=== PATIENT | male | born 1945 | race Caucasian/White ===

== ENCOUNTER 2017-09-12 13:03 | Observation (INO) | payer MEDICARE ==
[~2017-09-12] VITALS: Ht 180.3 cm; Wt 100.0 kg
[2017-09-12] VITALS (7 sets, daily range): BP systolic 134–166; BP diastolic 70–90; PULSE 59–98; RESP 18; TEMP 97.8–98.5; O2SAT 93–98
[~2017-09-12 13:03] MED LIST: ASPI81TA82 PO; ATOR80TA41 PO; PRAS10 PO
[2017-09-12 14:00] LABS: AUTOMATED NEUTROPHIL # 3.2 TH/MM3 (1.8-7.7); BASOPHIL % 0.6 % (0.0-2.0); EOSINOPHIL # 0.1 TH/MM3 (0-0.4); EOSINOPHIL % 1.7 % (0.0-4.0); HEMATOCRIT 39.3 % (39.0-51.0); HEMOGLOBIN 13.6 GM/DL (13.0-17.0); LYMPH % 34.3 % (9.0-44.0); LYMPHOCYTE # 2.1 TH/MM3 (1.0-4.8); MEAN CELL VOLUME 83.8 FL (80.0-100.0); MEAN CORPUSCULAR HEMOGLOBIN 29.1 PG (27.0-34.0); MEAN CORPUSCULAR HGB CONC 34.7 % (32.0-36.0); MEAN PLATELET VOLUME 8.4 FL (7.0-11.0); MONO % 11.9 % (0.0-8.0); MONOCYTE # 0.7 TH/MM3 (0-0.9); NEUT % 51.5 % (16.0-70.0); PLATELET COUNT 212 TH/MM3 (150-450); RED BLOOD COUNT 4.69 MIL/MM3 (4.50-5.90); RED CELL DISTRIBUTION WIDTH 16.7 % (11.6-17.2); WHITE BLOOD COUNT 6.1 TH/MM3 (4.0-11.0)
[2017-09-12 14:11] LABS: PROTHROMBIN TIME - PATIENT 10.5 SEC (9.8-11.6)
[2017-09-12 14:16] LABS: BICARBONATE 25.7 MEQ/L (21.0-32.0); BLOOD UREA NITROGEN 17 MG/DL (7-18); CALCIUM 9.2 MG/DL (8.5-10.1); CHLORIDE 104 MEQ/L (98-107); CREATININE 1.09 MG/DL (0.60-1.30); GLOMERULAR FILTRATION RATE 67 ML/MIN (>89); GLUCOSE,RANDOM 200 MG/DL (74-106); SODIUM (NA) 138 MEQ/L (136-145)
--- NOTE | 2017-09-12 14:16 | RADRPT ---
EXAM DATE/TIME: 09/12/2017 13:38 [facility] COMPARISON: No previous studies available for comparison. INDICATIONS : Chest pain and short of breath. MEDICAL HISTORY : None. SURGICAL HISTORY : Carotid stent. ENCOUNTER: Initial ACUITY: 1 day PAIN SCORE: 3/10 LOCATION: Bilateral chest FINDINGS: PA and lateral views of the chest demonstrate the lungs to be symmetrically aerated without evidence of mass, infiltrate or effusion. The cardiomediastinal contours are unremarkable. Osseous structure s are intact. CONCLUSION: No acute disease. Jerman Jeff Jr., MD on September 12, 2017 at 14:14 Board Certified Radiologist. This report was verified electronically.
[2017-09-12 14:20] LABS: TROPONIN I LESS THAN 0.02 NG/ML (0.02-0.05)
--- NOTE | 2017-09-12 16:11 | PD ---
HPI Chief Complaint: Chest Pain Time Seen by Provider: 15:54 Travel History International Travel<30 days: No Contact w/Intl Traveler<30days: No Traveled to known affect area: No History of Present Illness HPI 71-year-old male with history of hypertension, coronary artery disease, hyperlipidemia, diabetes, presents for evaluation. He reports that this morning at 9 AM he was doing yard work when he felt diaphoresis, dyspnea, lightheadedness. Symptoms lasted for approximately 45 minutes and then resolved. He has been asymptomatic since then. He called the office of his access registrar Dr. Delarosa and they recommended that he come to the hospital for further evaluation. He reports that he had similar symptoms 1.5 weeks ago when he was walking for 1 mile. He reports that he had similar symptoms in 2014 when he required cardiac catheterization and stenting of the LAD. He denies any episodes of chest pain today. He denies any cough, congestion, abdominal pain, nausea or vomiting. He has no other complaints at this time. PFSH Past Medical History Hx Anticoagulant Therapy: Yes Asthma: No Autoimmune Disease: No Heart Rhythm Problems: No Cancer: Yes (Skin cancer 25 years ago ; cut-off and removed.) Cardiovascular Problems: Yes High Cholesterol: Yes Chemotherapy: No Chest Pain: No Congestive Heart Failure: No COPD: No Cerebrovascular Accident: Yes Diabetes: Yes Diminished Hearing: No GERD: No Hiatal Hernia: No Immune Disorder: No Kidney Stones: No Musculoskeletal: No Neurologic: Yes Psychiatric: No Reproductive: No Immunizations Current: Yes Radiation Therapy: No Renal Failure: No Sickle Cell Disease: No Sleep Apnea: No Thyroid Disease: No Ulcer: No Past Surgical History Coronary Stent: Yes (PLACED 07/2014) Social History Alcohol Use: Yes (3-4 SCOTCH DAILY; LAST DRINK 07/28/14) Tobacco Use: No (QUIT 1989) Substance Use: No Allergies-Medications (Allergen,Severity, Reaction): Coded Allergies: No Known Allergies (Unverified , 09/12/17) Reported Meds & Prescriptions Reported Meds & Active Scripts Active Reported Aspirin Low Dose (Aspirin) 81 Mg Chew 81 Mg CHEW DAILY Atorvastatin (Atorvastatin Calcium) 80 Mg Tab 80 Mg PO HS Glyburide 2.5 Mg Tab 2.5 Mg PO DAILY Take with meals at the same time each day Review of Systems Except as stated in HPI: all other systems reviewed are Neg Physical Exam Narrative GENERAL: Well-developed well-nourished male in no acute distress SKIN: Warm and dry. HEAD: Atraumatic. Normocephalic. EYES: Pupils equal and round. No scleral icterus. No injection or drainage. ENT: No nasal bleeding or discharge. Mucous membranes pink and moist. NECK: Trachea midline. No JVD. CARDIOVASCULAR: Regular rate and rhythm. No murmur appreciated. RESPIRATORY: No accessory muscle use. Clear to auscultation. Breath sounds equal bilaterally. GASTROINTESTINAL: Abdomen soft, non-tender, nondistended. Hepatic and splenic margins not palpable. MUSCULOSKELETAL: No obvious deformities. No clubbing. No cyanosis. No edema. NEUROLOGICAL: Awake and alert. No obvious cranial nerve deficits. Motor grossly within normal limits. Normal speech. PSYCHIATRIC: Appropriate mood and affect; insight and judgment normal. Data Data Last Documented VS Vital Signs Date Time Temp Pulse Resp B/P (MAP) Pulse Ox O2 Delivery O2 Flow Rate FiO2 09/12/17 16:15 97 Room Air 09/12/17 16:15 09/12/17 13:09 97.8 98 18 Orders Orders Electrocardiogram (09/12/17 13:11) Complete Blood Count With Diff (09/12/17 13:11) Basic Metabolic Panel (Bmp) (09/12/17 13:11) Ckmb (Isoenzyme) Profile (09/12/17 13:11) Troponin I (09/12/17 13:11) Iv Access Insert/Monitor (09/12/17 13:11) Ecg Monitoring (09/12/17 13:11) Oxygen Administration (09/12/17 13:11) Oximetry (09/12/17 13:11) Chest, Pa & Lat (09/12/17 13:11) Act Partial Throm Time (Ptt) (09/12/17 13:41) Prothrombin Time / Inr (Pt) (09/12/17 13:41) Admit Order (Ed Use Only) (09/12/17 16:26) Labs Laboratory Tests Test 09/12/17 13:45 White Blood Count 6.1 TH/MM3 Red Blood Count 4.69 MIL/MM3 Hemoglobin 13.6 GM/DL Hematocrit 39.3 % Mean Corpuscular Volume 83.8 FL Mean Corpuscular Hemoglobin 29.1 PG Mean Corpuscular Hemoglobin Concent 34.7 % Red Cell Distribution Width 16.7 % Platelet Count 212 TH/MM3 Mean Platelet Volume 8.4 FL Neutrophils (%) (Auto) 51.5 % Lymphocytes (%) (Auto) 34.3 % Monocytes (%) (Auto) 11.9 % Eosinophils (%) (Auto) 1.7 % Basophils (%) (Auto) 0.6 % Neutrophils # (Auto) 3.2 TH/MM3 Lymphocytes # (Auto) 2.1 TH/MM3 Monocytes # (Auto) 0.7 TH/MM3 Eosinophils # (Auto) 0.1 TH/MM3 Basophils # (Auto) 0.0 TH/MM3 CBC Comment DIFF FINAL Differential Comment Prothrombin Time 10.5 SEC Prothromb Time International Ratio 1.0 RATIO Activated Partial Thromboplast Time 30.0 SEC Blood Urea Nitrogen 17 MG/DL Creatinine 1.09 MG/DL Random Glucose 200 MG/DL Calcium Level 9.2 MG/DL Sodium Level 138 MEQ/L Potassium Level 3.9 MEQ/L Chloride Level 104 MEQ/L Carbon Dioxide Level 25.7 MEQ/L Anion Gap 8 MEQ/L Estimat Glomerular Filtration Rate 67 ML/MIN Total Creatine Kinase 58 U/L Troponin I LESS THAN 0.02 NG/ML MDM Medical Decision Making Medical Screen Exam Complete: Yes Emergency Medical Condition: Yes Medical Record Reviewed: Yes Differential Diagnosis Angina, unstable angina, acute coronary syndrome, spontaneous pneumothorax, pericarditis, myocarditis, pulmonary embolism Narrative Course Lab work, chest x-ray, EKG were obtained. Labwork reveals random glucose of 200 , otherwise unremarkable. I discussed with the patient's access registrar Dr. Delarosa who is agreeable with admission and the chest pain center. The patient is agreeable. Diagnosis Primary Impression: CAD (coronary artery disease) Additional Impressions: Dyspnea on exertion Diaphoresis Admitting Information Admitting Physician Requests: Observation Armaan Garcia Sep 12, 2017 16:10
[2017-09-12] MEDS ORDERED: GLYB2.5T3 PO (16:17)
[2017-09-12] MEDS ORDERED: ATOR80TA45 PO (16:17)
[2017-09-12] MEDS ORDERED: ASPI81CH6 CHEW (16:17)
[2017-09-12] MEDS ORDERED: AMLO2.5T PO (17:14)
[2017-09-12] MEDS ORDERED: RESP: ALBUTEROL 2.5 MG/IPRATROPIUM 0.5 MG NEB (PRN) INH (17:15)
[2017-09-12] MEDS ORDERED: ALPRAZolam 0.25 MG TAB PO PRN (17:15)
[2017-09-12] MEDS ORDERED: ACETAMINOPHEN 500 MG CPLT PO PRN (17:15)
[2017-09-12] MEDS ORDERED: ONDANSETRON HCL 4 MG/2 ML VIAL IV PUSH PRN (17:15)
[2017-09-12] MEDS ORDERED: cloNIDine HCL 0.1 MG TAB PO PRN (17:15)
[2017-09-12] MEDS ORDERED: ACETAMINOPHEN/HYDROcodone 325 MG/7.5 MG TAB PO PRN (17:15)
--- NOTE | 2017-09-12 17:23 | HHI.HP ---
HPI Primary Care Physician Unknown Chief Complaint Dyspnea on exertion History of Present Illness This is a 71-year-old male that presents to ED via private vehicle with history of CAD with a stent of the LAD 3 years ago, hyperlipidemia, and hypertension with a complaint of dyspnea on exertion. Patient states that 1-1/2 week ago while doing his daily walk of about a mile he developed sudden onset profuse diaphoresis and shortness of breath. States he had to sit on a bench. Denied chest discomfort. Symptoms resolved within 20 minutes. States he basically did nothing strenuous for the past week and half until today. States that today he decided to do some gardening. He was planting some hibiscus bushes when he developed a sudden onset of profuse diaphoresis and shortness of breath. States he went inside and symptoms resolved within 15-20 minutes. Denied discomfort in his chest. States these symptoms are very similar to when he needed a stent approximately 3 years ago. Upon reviewing records he was a non-STEMI and had a stent of the LAD at that time. Cannot recall any recent stress testing. Called his vice president of consulting services's office and was advised to come to ED. He has been free of symptoms since being in the ED. Review of Systems General: Patient denies fevers, chills recent, and recent travel HEENT: Patient denies headache, sore throat, difficulty swallowing. Cardiovascular: Denies chest discomfort. Denies sensation of heart beating rapidly or irregularly. No syncope. He was diaphoretic. Respiratory: Dyspnea on exertion. Denies inspirational chest discomfort. Denies coughing wheezing or hemoptysis. GI: Patient denies nausea, vomiting, diarrhea, abdominal pain, bloody stools. Musculoskeletal: Patient denies joint pain or edema. Denies calf pain or edema. Neurovascular: Patient denies numbness, tingling, weakness in extremities. Denies headache. Endocrine: Denies polyuria and polydipsia. Hematologic: Denies easy bruising. Skin: Denies rash or itching. Past Family Social History Allergies: Coded Allergies: No Known Allergies (Unverified , 09/12/17) Past Medical History CAD with stent of LAD. Hypertension, diabetes, and hyperlipidemia. Past Surgical History Cardiac catheterization 3 years ago a stent of LAD. Cardiac catheterization July 2015 which is discussed with his vice president of consulting services Dr. Delarosa, FFR of the stent was normal. Reported Medications Reported Meds & Active Scripts Active Reported Amlodipine (Amlodipine Besylate) 2.5 Mg Tab 2.5 Mg PO DAILY Aspirin Low Dose (Aspirin) 81 Mg Chew 81 Mg CHEW DAILY Atorvastatin (Atorvastatin Calcium) 80 Mg Tab 80 Mg PO HS Glyburide 2.5 Mg Tab 2.5 Mg PO DAILY Take with meals at the same time each day Family History There is family history of CAD. Social History Non-smoker. Denies alcohol or illicit drugs. Physical Exam Vital Signs Vital Signs Date Time Temp Pulse Resp B/P (MAP) Pulse Ox O2 Delivery O2 Flow Rate FiO2 09/12/17 16:15 97 Room Air 09/12/17 16:15 97 Room Air 09/12/17 13:09 97.8 98 18 166/90 (115) 97 Physical Exam GENERAL: This is a well-nourished, well-developed patient, in no apparent distress. Patient speaks in clear complete sentences. Patient is pleasant. HEENT: Head is atraumatic and normocephalic. Neck is supple without lymphadenopathy and trachea is midline. No JVD or carotid bruits. CARDIOVASCULAR: Regular rate and rhythm without murmurs, gallops, or rubs. RESPIRATORY: Clear to auscultation. Breath sounds equal bilaterally. No wheezes , rales, or rhonchi. Chest wall is nontender. No use of accessory muscles. GASTROINTESTINAL: Abdomen is nontender, nondistended. Abdomen soft. No obvious pulsatile mass or bruit. No CVA tenderness. Strong femoral pulses bilaterally. Normal bowel sounds in all quadrants. MUSCULOSKELETAL: Patient is moving upper and lower extremities freely. No calf tenderness or edema, no Homans sign. Strong pulses in upper and lower extremities. NEUROLOGICAL: Patient is alert and oriented. Cranial nerves 2-12 are grossly intact. No focal deficits and speech is clear. SKIN: No rash and turgor is normal. Laboratory Laboratory Tests Test 09/12/17 13:45 White Blood Count 6.1 Red Blood Count 4.69 Hemoglobin 13.6 Hematocrit 39.3 Mean Corpuscular Volume 83.8 Mean Corpuscular Hemoglobin 29.1 Mean Corpuscular Hemoglobin Concent 34.7 Red Cell Distribution Width 16.7 Platelet Count 212 Mean Platelet Volume 8.4 Neutrophils (%) (Auto) 51.5 Lymphocytes (%) (Auto) 34.3 Monocytes (%) (Auto) 11.9 Eosinophils (%) (Auto) 1.7 Basophils (%) (Auto) 0.6 Neutrophils # (Auto) 3.2 Lymphocytes # (Auto) 2.1 Monocytes # (Auto) 0.7 Eosinophils # (Auto) 0.1 Basophils # (Auto) 0.0 CBC Comment DIFF FINAL Differential Comment Prothrombin Time 10.5 Prothromb Time International Ratio 1.0 Activated Partial Thromboplast Time 30.0 Blood Urea Nitrogen 17 Creatinine 1.09 Random Glucose 200 Calcium Level 9.2 Sodium Level 138 Potassium Level 3.9 Chloride Level 104 Carbon Dioxide Level 25.7 Anion Gap 8 Estimat Glomerular Filtration Rate 67 Total Creatine Kinase 58 Troponin I LESS THAN 0.02 Result Diagram: 09/12/17 1345 09/12/17 1345 Caprini VTE Risk Assessment Caprini VTE Risk Assessment: Mod/High Risk (score >= 2) Caprini Risk Assessment Model Point Value = 1 Point Value = 2 Point Value = 3 Point Value = 5 Age 41-60 Minor surgery BMI > 25 kg/m2 Swollen legs Varicose veins or History of unexplained or recurrent spontaneous Oral contraceptives or hormone replacement Sepsis (< 1 month) Serious lung disease, including pneumonia (< 1 month) Abnormal pulmonary function Acute myocardial infarction Congestive heart failure (< 1 month) History of inflammatory bowel disease Medical patient at bed rest Age 61-74 Arthroscopic surgery Major open surgery (> 45 min) Laparoscopic surgery (> 45 min) Malignancy Confined to bed (> 72 hours) Immobilizing plaster cast Central venous access Age >= 75 History of VTE Family history of VTE Factor V Leiden Prothrombin [id number] Lupus anticoagulant Anticardiolipin antibodies Elevated serum homocysteine Heparin-induced thrombocytopenia Other congenital or acquired thrombophilia Stroke (< 1 month) Elective arthroplasty Hip, pelvis, or leg fracture Acute spinal cord injury (< 1 month) Prophylaxis Regimen Total Risk Factor Score Risk Level Prophylaxis Regimen 0-1 Low Early ambulation 2 Moderate Order ONE of the following: *Sequential Compression Device (SCD) *Heparin 5000 units SQ BID 3-4 Higher Order ONE of the following medications: *Heparin 5000 units SQ TID *Enoxaparin/Lovenox 40 mg SQ daily (WT < 150 kg, CrCl > 30 mL/min) *Enoxaparin/Lovenox 30 mg SQ daily (WT < 150 kg, CrCl > 10-29 mL/min) *Enoxaparin/Lovenox 30 mg SQ BID (WT < 150 kg, CrCl > 30 mL/min) AND/OR *Sequential Compression Device (SCD) 5 or more Highest Order ONE of the following medications: *Heparin 5000 units SQ TID (Preferred with Epidurals) *Enoxaparin/Lovenox 40 mg SQ daily (WT < 150 kg, CrCl > 30 mL/min) *Enoxaparin/Lovenox 30 mg SQ daily (WT < 150 kg, CrCl > 10-29 mL/min) *Enoxaparin/Lovenox 30 mg SQ BID (WT < 150 kg, CrCl > 30 mL/min) AND *Sequential Compression Device (SCD) Assessment and Plan Assessment and Plan * Dyspnea on exertion: Patient will continue to have serial cardiac enzymes and EKGs for ruling out purposes. He will be seen by Dr. Lindsey of cardiology in the chest pain center. I discussed the patient with Dr. Delarosa, patient will have a Lexiscan in the morning if he rules out. Further plan pending results of stress test. Stress test were to be nonischemic, he will be discharged home with instructions to resume home medications. Follow-up with PCP and vice president of consulting services. Return to ED for interval issues. * CAD: This will be reassessed with stress testing if he rules out. * Hypertension: Continue current medication. * Hyperlipidemia: Continue current medication. * Diabetes: Patient will be on sliding scale insulin coverage while chest pain center. Diabetic diet. Resume medication at discharge. Patient is stable at this time. He is agreeable to this plan. Mike Holloway Sep 12, 2017 17:23
[2017-09-12] MEDS ORDERED: PILL SPLITTER OTHER PRN (17:30)
[2017-09-12] MEDS ORDERED: GLUCAGON 1 MG/ML VIAL OTHER PRN (17:30)
[2017-09-12] MEDS ORDERED: DEXTROSE 50% IN WATER 50 ML VIAL(D50) IV PUSH PRN (17:30)
--- NOTE | 2017-09-12 17:38 | PD.CARD.PN ---
Subjective Subjective Remarks Patient was discussed with the PA then seen and examined. He has a known history of coronary artery disease with a stent and is followed by Dr. Delarosa. He has developed recurring episodes of chest discomfort shortness of breath and diaphoresis precipitated by exertion and occurring with increased frequency. Dr. Delarosa advised him to report to the ED for evaluation. Documentation as completed is accurate and appropriate. Objective Medications Current Medications Medications (Trade) Dose Ordered Sig/Simi Route Start Time Stop Time Status Last Admin (Tylenol) 500 mg Q4H PRN PO 09/12/17 17:15 (Glen 7.5-325 Mg) 1 tab Q4H PRN PO 09/12/17 17:15 (Zofran Inj) 4 mg Q6H PRN IV PUSH 09/12/17 17:15 (Aspirin) 325 mg DAILY PO 09/13/17 09:00 (Xanax) 0.25 mg Q8H PRN PO 09/12/17 17:15 (Duoneb Neb) 1 ampule Q4HR NEB PRN INH 09/12/17 17:15 (Catapres) 0.1 mg Q4H PRN PO 09/12/17 17:15 (Norvasc) 2.5 mg DAILY PO 09/13/17 09:00 (Lipitor) 80 mg HS PO 09/12/17 21:00 (NovoLOG SUPPLEMENTAL SCALE) 1 ACHS SLIDING SCALE SQ 09/12/17 21:00 (D50w (Vial) Inj) 50 ml UNSCH PRN IV PUSH 09/12/17 17:30 (Glucagon Inj) 1 mg UNSCH PRN OTHER 09/12/17 17:30 (Pill Splitter) 1 ea UNSCH PRN OTHER 09/12/17 17:30 Vital Signs / I&O Vital Signs Date Time Temp Pulse Resp B/P (MAP) Pulse Ox O2 Delivery O2 Flow Rate FiO2 09/12/17 16:15 97 Room Air 09/12/17 16:15 97 Room Air 09/12/17 13:09 97.8 98 18 166/90 (115) 97 Physical Exam GENERAL: Obese pleasant gentleman resting comfortably in bed SKIN: Warm and dry. HEAD: Atraumatic. Normocephalic. NECK: Trachea midline. No JVD. CARDIOVASCULAR: Regular rate and rhythm. RESPIRATORY: No accessory muscle use. Clear to auscultation. Breath sounds equal bilaterally. MUSCULOSKELETAL: Extremities without clubbing, cyanosis, or edema. No obvious deformities. Laboratory Laboratory Tests Test 09/12/17 13:45 White Blood Count 6.1 TH/MM3 Red Blood Count 4.69 MIL/MM3 Hemoglobin 13.6 GM/DL Hematocrit 39.3 % Mean Corpuscular Volume 83.8 FL Mean Corpuscular Hemoglobin 29.1 PG Mean Corpuscular Hemoglobin Concent 34.7 % Red Cell Distribution Width 16.7 % Platelet Count 212 TH/MM3 Mean Platelet Volume 8.4 FL Neutrophils (%) (Auto) 51.5 % Lymphocytes (%) (Auto) 34.3 % Monocytes (%) (Auto) 11.9 % Eosinophils (%) (Auto) 1.7 % Basophils (%) (Auto) 0.6 % Neutrophils # (Auto) 3.2 TH/MM3 Lymphocytes # (Auto) 2.1 TH/MM3 Monocytes # (Auto) 0.7 TH/MM3 Eosinophils # (Auto) 0.1 TH/MM3 Basophils # (Auto) 0.0 TH/MM3 CBC Comment DIFF FINAL Differential Comment Prothrombin Time 10.5 SEC Prothromb Time International Ratio 1.0 RATIO Activated Partial Thromboplast Time 30.0 SEC Blood Urea Nitrogen 17 MG/DL Creatinine 1.09 MG/DL Random Glucose 200 MG/DL Calcium Level 9.2 MG/DL Sodium Level 138 MEQ/L Potassium Level 3.9 MEQ/L Chloride Level 104 MEQ/L Carbon Dioxide Level 25.7 MEQ/L Anion Gap 8 MEQ/L Estimat Glomerular Filtration Rate 67 ML/MIN Total Creatine Kinase 58 U/L Troponin I LESS THAN 0.02 NG/ML Imaging Last 24 hours Impressions Chest X-Ray 09/12/17 1311 Signed Impressions: Service Date/Time: August 13:38 - CONCLUSION: No acute disease. Jerman Jeff Jr., MD Assessment and Plan Problem List: (1) Coronary artery disease ICD Codes: I25.10 - Atherosclerotic heart disease of [place] coronary artery without angina pectoris Status: Acute Plan: We will use chest pain protocol to rule out ACS and if negative will have him undergo nuclear stress test in the a.m. (2) Diabetes ICD Codes: E11.9 - Type 2 diabetes mellitus without complications Status: Acute (3) Chest pain ICD Codes: R07.9 - Chest pain, unspecified Status: Acute (4) Hyperlipidemia ICD Codes: E78.5 - Hyperlipidemia Status: Acute (5) Diaphoresis ICD Codes: R61 - Generalized hyperhidrosis Status: Acute (6) Dyspnea on exertion ICD Codes: R06.09 - Other forms of dyspnea Status: Acute Doe Lindsey MD Sep 12, 2017 17:38
[2017-09-12 18:17] LABS: TROPONIN I LESS THAN 0.02 NG/ML (0.02-0.05)
[2017-09-12] MEDS ORDERED: ATORVASTATIN 80 MG TAB PO SCH (21:00)
[2017-09-12] MEDS: INSULIN ASPART SUPPLEMENTAL SCALE SQ SCH (21:00)
[2017-09-12] MEDS: NITROGLYCERIN 2% OINT 1 GM PACKET TOPICAL SCH (21:07)
[2017-09-12 21:18] LABS: TROPONIN I LESS THAN 0.02 NG/ML (0.02-0.05)
[2017-09-13 00:07] VITALS: PULSE 62
[2017-09-13] MEDS: NITROGLYCERIN 2% OINT 1 GM PACKET TOPICAL SCH ×2 (03:06→08:08)
[2017-09-13 03:09] VITALS: BP 139/71; PULSE 57; RESP 18; TEMP 98.4; O2SAT 95
[2017-09-13 04:25] VITALS: PULSE 58
[2017-09-13 07:54] VITALS: PULSE 59
[2017-09-13 07:55] VITALS: BP 129/77; PULSE 59; RESP 18; TEMP 98.6; O2SAT 97
--- NOTE | 2017-09-13 07:57 | EKG ---
Date Performed: 09/12/2017 Time Performed: 17:32:49 PTAGE: 71 years EKG: Sinus rhythm WITH OCCASIONAL SUPRAVENTRICULAR PREMATURE COMPLEXES BORDERLINE ECG NO SIG CHANGE PREVIOUS TRACING : 09/12/2017 13.43 DOCTOR: Doe Lindsey Interpretating Date/Time 09/13/2017 07:57:22
--- NOTE | 2017-09-13 08:00 | EKG ---
Date Performed: 09/12/2017 Time Performed: 13:43:11 PTAGE: 71 years EKG: Sinus rhythm INCOMPLETE RIGHT BUNDLE BRANCH BLOCK BORDERLINE ECG NO CHANGE PREVIOUS TRACING : 07/29/2015 10.31 DOCTOR: Doe Lindsey Interpretating Date/Time 09/13/2017 07:58:40
[2017-09-13] MEDS: INSULIN ASPART SUPPLEMENTAL SCALE SQ SCH (08:04)
[2017-09-13] MEDS ORDERED: ASPIRIN 325 MG TAB PO SCH (09:00)
[2017-09-13] MEDS ORDERED: amLODIPine BESYLATE 5 MG TAB PO SCH (09:00)
[2017-09-13] MEDS ORDERED: REGADENOSON INJ 0.4 MG/5 ML SYR ONE (09:23)
--- NOTE | 2017-09-13 10:42 | RADRPT ---
EXAM DATE/TIME: 09/13/2017 08:46 [facility] COMPARISON: No previous studies available for comparison. INDICATIONS : Chest pain with diaphoresis, dyspnea and lightheadedness. Angina. DOSE: 35 mCi Tc99m Myoview at stress. 11 mCi Tc99m Myoview at rest. 0.4 mg Lexiscan STRESS SYMPTOMS: Asymptomatic. EJECTION FRACTION: > 70% MEDICAL HISTORY : Myocardial infarction. Hypercholesterolemia. Diabetes mellitus type 2. Hypertension. SURGICAL HISTORY : Coronary artery stent. ENCOUNTER: Initial ACUITY: 1 day PAIN SCALE: 6/10 LOCATION: chest TECHNIQUE: The patient underwent pharmacologic stress with infusion of prescribed dose. Continuous ECG tracing was monitored during stress. Gated SPECT imaging was performed after stress and conventional SPECT i maging was performed at rest. The examination was performed on a SPECT/CT scanner, both attenuation and non-corrected datasets were reviewed. FINDINGS: DISTRIBUTION: The maximum perfused segment at stress is in the lateral wall. PERFUSION STUDY: The pattern of perfusion at stress is within normal limits, with regional variations of perfusion wit hin 30%. The summed stress score is one. No evidence of redistribution.. GATED STUDY: There is intact wall motion and thickening without hypokinetic or dyskinetic segments. CONCLUSION: 1. No evidence of stress-induced ischemia. 2. Intact wall motion with greater than 70% ejection fraction. RISK CATEGORY: Low (<1% Annual Mortality Rate) Jerman Cooper MD on September 13, 2017 at 10:32 Board Certified Radiologist. This report was verified electronically.
--- NOTE | 2017-09-13 11:11 | HHI.DS ---
Discharge Summary Admission Date Sep 12, 2017 at 16:28 Discharge Date: Sep 13, 2017 Admitting Diagnosis dyspnea on exertion, diaphoresis Brief History 71 year old male with known CAD and previous stent presented to ER for further evaluation of dyspnea on exertion. Admitted to [facility]. Ruled out with 3 sets of EKG and cardiac enzymes. Seen and evaluated by Dr. Doe Lindsey. Patient's forensic specialist, Dr. Rocío Delarosa made aware of patient's admission to [facility]. Monitored overnight and completed chemical stress test in am. CBC/BMP: 09/12/17 1345 09/12/17 1345 Significant Findings Laboratory Tests Test 09/12/17 13:45 09/12/17 17:30 09/12/17 20:35 Monocytes (%) (Auto) 11.9 % (0.0-8.0) Random Glucose 200 MG/DL (74-106) Estimat Glomerular Filtration Rate 67 ML/MIN (>89) Troponin I LESS THAN 0.02 NG/ML LESS THAN 0.02 NG/ML LESS THAN 0.02 NG/ML Imaging Last 48 hours Impressions Myocardial Perfusion Scan Nuc Med 09/13/17 0000 Signed Impressions: Service Date/Time: Wednesday, September 13, 2017 08:46 - CONCLUSION: 1. No evidence of stress-induced ischemia. 2. Intact wall motion with greater than 70%% ejection fraction. RISK CATEGORY: Low (<1%% Annual Mortality Rate) Jerman Cooper MD Chest X-Ray 09/12/17 1311 Signed Impressions: Service Date/Time: August 13:38 - CONCLUSION: No acute disease. Jerman Jeff Jr., MD Pt Condition on Discharge: Good Discharge Disposition: Discharge Home MusaEmma PRADO Sep 13, 2017 11:11
--- NOTE | 2017-09-13 17:44 | EKG ---
Date Performed: 09/12/2017 Time Performed: 23:32:25 PTAGE: 71 years EKG: Sinus rhythm NORMAL ECG PREVIOUS TRACING : 09/12/2017 17.32 DOCTOR: Doe Lindsey Interpretating Date/Time 09/13/2017 17:42:23
--- NOTE | 2017-09-13 17:48 | TR ---
Date Performed: 09/13/2017 Time Performed: 09:17:12 DOCTOR: Deo Lindsey DRUG LIST: CLINICAL HISTORY: CHEST PAIN REASON FOR TEST: CHEST PAIN REASON FOR ENDING: OBSERVATION: CONCLUSION: Patient exercised using the Seferino protocol. No electrocardiographic changes were see n to suggest ischemia. Hemodynamic response to exercise was normal. No significant arrhythmia was pre sent. COMMENTS:
== END 2017-09-13 11:50 | disposition home or self-care (01) ==
LOC: NEPC 13:03 → NEDA 16:28 → NEPFCDU 18:14
PROVIDERS: ADMIT Internal Medicine Interventional Cardiology; ATTEND Internal Medicine Interventional Cardiology
DX: R06.00 Dyspnea, unspecified (principal); R06.02 Shortness of breath; R61 Generalized hyperhidrosis; I45.10 Unspecified right bundle-branch block; R42 Dizziness and giddiness; I25.10 Atherosclerotic heart disease of native coronary artery without angina pectoris; I10 Essential (primary) hypertension; E78.00 Pure hypercholesterolemia, unspecified; E11.9 Type 2 diabetes mellitus without complications; Z95.5 Presence of coronary angioplasty implant and graft; I25.2 Old myocardial infarction; Z79.899 Other long term (current) drug therapy; Z79.82 Long term (current) use of aspirin; Z79.84 Long term (current) use of oral hypoglycemic drugs
CPT/HCPCS: 71046; 78452; 80048; 82550; 82948; 84484; 85025; 85610; 85730; 93005; 93017; 99285; A9502; G0378; J2785